=== PATIENT | female | born 1980 | race Caucasian/White ===

== ENCOUNTER 2018-05-27 14:59 | Emergency (ER) | payer OTHER ==
[~2018-05-27] VITALS: Ht 162.6 cm; Wt 60.3 kg
[2018-05-27 15:29] LABS: ABSOLUTE NEUTROPHILS 4.7 thou/uL (1.4-8.2); BASOPHILS 0.9 % (0.0-2.0); EOSINOPHILS 3.5 % (0.0-3.0); HEMATOCRIT 40.8 % (37.0-47.0); HEMOGLOBIN 14.2 gm/dL (12.0-15.0); LYMPHOCYTES 21.2 % (24.0-44.0); MCH 30.5 pg (26.0-34.0); MCHC 34.7 g/dL (28.0-37.0); MCV 88.1 fL (80.0-100.0); MONOCYTES 6.9 % (1.0-8.0); PLATELET COUNT 218 thou/uL (150-400); POLYS 67.5 % (36.0-66.0); RBC 4.63 mil/uL (4.20-5.00); RDW 12.9 % (10.5-14.5); WBC 6.9 thou/uL (4.0-11.0)
[2018-05-27 15:30] LABS: URINE BILIRUBIN NEGATIVE (Negative); URINE BLOOD NEGATIVE (Negative); URINE CLARITY CLEAR; URINE COLOR YELLOW; URINE GLUCOSE-RANDOM* NEGATIVE (Negative); URINE KETONES NEGATIVE (Negative); URINE LEUKOCYTES-REFLEX NEGATIVE (Negative); URINE NITRITE-REFLEX NEGATIVE (Negative); URINE PROTEIN (DIPSTICK) NEGATIVE (Negative); URINE SPECIFIC GRAVITY 1.015 (1.005-1.035); URINE UROBILINOGEN 0.2 E.U./dl (0.2-1.0)
[2018-05-27 15:44] LABS: CREATININE 0.9 mg/dL (0.6-1.0)
[2018-05-27 15:49] LABS: ALBUMIN 3.9 g/dL (3.4-5.0); TOTAL BILIRUBIN 0.4 mg/dL (<0.1-1.0); TOTAL PROTEIN 6.9 g/dL (6.4-8.2)
[2018-05-27] MEDS ORDERED: LEXAPRO 10 MG T10 M2 PO (16:01)
[2018-05-27] MEDS ORDERED: BIRTH CONTROL PO (16:01)
[2018-05-27] MEDS ORDERED: CITRATE OF MAG296 ML PO (17:24)
[2018-05-27 17:35] VITALS: BP 121/67
== END 2018-05-27 17:36 | disposition home or self-care (01) ==
LOC: ER 14:59
PROVIDERS: Nurse Practitioner Family
DX: K59.00 Constipation, unspecified (principal); Z88.1 Allergy status to other antibiotic agents